=== PATIENT | female | born 1985 ===

== ENCOUNTER 2025-03-04 22:07 | Inpatient (IN) | payer OTHER ==
[~2025-03-04] VITALS: Ht 162.6 cm; Wt 127.5 kg
[2025-03-04] MEDS ORDERED: DiphenhydrAMINE HCl 50 MG/ML 1ML Vial IV ONE (22:45)
[2025-03-04] MEDS ORDERED: EpiNEPhrine 1 MG/1 ML 1ML Vial IM ONE (22:45)
[2025-03-04] MEDS ORDERED: NS 1,000 ML IV SCH (22:45)
[2025-03-04 22:58] LABS: BASOPHILS ABSOLUTE AUTO 0.18 K/mm3 (0.00-0.23); BASOPHILS PERCENT AUTO 1 % (0-2); EOSINOPHILS ABSOLUTE AUTO 0.01 K/mm3 (0.00-0.68); EOSINOPHILS PERCENT AUTO 0 % (0-6); Hematocrit 44.6 % (33.0-51.0); Hemoglobin 15.2 g/dL (11.5-16.0); IMMATURE GRAN ABSOLUTE AUTO 0.52 K/mm3 (0.00-0.10); IMMATURE GRAN PERCENT AUTO 2 % (0-1); LYMPHOCYTES ABSOLUTE AUTO 3.82 K/mm3 (0.84-5.20); LYMPHOCYTES PERCENT AUTO 13 % (21-46); MONOCYTES ABSOLUTE AUTO 1.91 K/mm3 (0.16-1.47); MONOCYTES PERCENT AUTO 6 % (4-13); Mean Corpuscular HGB Conc 34.1 g/dL (31.5-36.5); Mean Corpuscular Volume 83 fL (80-100); NEUTROPHILS ABSOLUTE AUTO 23.73 K/mm3 (1.96-9.15); NEUTROPHILS PERCENT AUTO 79 % (41-73); NRBC ABSOLUTE 0.02 K/mm3 (0.00-0.02); NRBC Auto 0.1 /100 WBC (0.0-0.2); Platelet Count 438 K/mm3 (150-400); RDW Coefficient Variation 13.5 % (11.7-14.2); RDW Standard Deviation 40.5 fL (35.1-46.3)
[2025-03-04 23:10] LABS: Ethanol (Alcohol), Blood, Med 27.0 mg/dL; Thyroid Stimulating Hormone 0.6 uIU/mL (0.360-4.800)
[2025-03-04 23:22] LABS: Alanine Aminotransfer (ALT/SGP 64.0 U/L (12-78); Albumin, Blood 3.4 g/dL (3.4-5.0); Albumin/Globulin Ratio 0.7 (0.8-1.8); Anion Gap 21.0 mmol/L (3-11); Aspartate Aminotrans (AST/SGOT 123.0 U/L (12-37); Bilirubin, Total 0.8 mg/dL (0.1-1.0); Blood Urea Nitrogen 10.0 mg/dL (8-24); CO2, Blood 17.0 mmol/L (21-32); Calcium, Blood 8.9 mg/dL (8.5-10.1); Chloride, Blood 95.0 mmol/L (98-108); Creatinine, Blood 1.34 mg/dL (0.40-1.00); Globulin, Blood 4.7 g/dL (2.2-4.0); Glucose, Blood 197.0 mg/dL (70-99); Magnesium, Blood 0.8 mg/dL (1.6-2.4); Potassium, Blood 3.5 mmol/L (3.5-5.5); Sodium, Blood 129.0 mmol/L (136-145); Total Protein, Blood 8.1 g/dL (6.4-8.2)
[2025-03-04] MEDS ORDERED: Magnesium Sulf 2 GM/Water 50ML 50 ML IV ONE (23:25)
[2025-03-04] MEDS ORDERED: LORazepam 2 MG/ML 1ML Injection IV ONE (23:35)
[2025-03-04] MEDS ORDERED: Morphine Sulfate 4 MG/1 ML Injection IV ONE (23:50)
[2025-03-05 00:02] LABS: pH Blood Venous 7.36 (7.34-7.37)
[2025-03-05] MEDS ORDERED: NS 1,000 ML IV SCH ×4 (00:30→15:45)
[2025-03-05] MEDS ORDERED: LevoFLOXacin 750 MG/D5W 150ML 150 ML IV ONE (00:45)
[2025-03-05 01:18] LABS: U Amphetamine Screen DETECTED; U Barbiturate Screen Not Detected; U Benzodiazapine Screen Not Detected; U Buprenorphine Screen Not Detected; U Cannabinoids Screen DETECTED; U Cocaine Screen Not Detected; U Methadone Screen Not Detected; U Methamphetamine Screen DETECTED; U Opiates Screen DETECTED; U Oxycodone Screen Not Detected; U Phencyclidine Screen Not Detected
[2025-03-05] MEDS ORDERED: FLU VACC TS2025-26(6MOS UP)/PF 45 MCG/0.5 ML SYRINGE IM SCH (02:05)
[2025-03-05] MEDS ORDERED: Morphine Sulfate 4 MG/1 ML Injection IV PRN (02:05)
[2025-03-05] MEDS ORDERED: LORazepam 2 MG/ML 1ML Injection IV PRN (02:05)
[2025-03-05] MEDS ORDERED: Naloxone HCl 0.4MG / ML 1ML Vial IV PRN (02:05)
[2025-03-05 03:31] LABS: Influenza A/2009-H1 Not Detected (NOT DETECT); SARS-Cov-2 (COVID-19), BioFire Not Detected (NOT DETECT)
[2025-03-05 04:15] LABS: pH Blood Venous 7.33 (7.34-7.37)
[2025-03-05] MEDS ORDERED: CYCL10 PO (04:38)
[2025-03-05] MEDS ORDERED: GABA300 PO (04:44)
[2025-03-05] MEDS ORDERED: Inderal 20 mg T20 MG PO (04:47)
[2025-03-05] MEDS ORDERED: RISP1 PO (04:49)
[2025-03-05] MEDS ORDERED: DESVENLAFAXINE100 MG PO (04:50)
[2025-03-05] MEDS ORDERED: TRAZ100 PO (04:50)
[2025-03-05] MEDS ORDERED: BUSPIRONE HCL30 M1 PO (04:52)
[2025-03-05] MEDS ORDERED: ABILIFY MYCITE15 M2 PO (04:52)
[2025-03-05] MEDS ORDERED: PANT20 PO (04:52)
[2025-03-05] MEDS ORDERED: Albuterol 2.5 MG/3 ML VIAL INH PRN (05:30)
[2025-03-05] MEDS ORDERED: Magnesium Sulf 2 GM/Water 50ML 50 ML IV ONE (05:55)
--- NOTE | 2025-03-05 05:56 | NUR ---
SHIFT SUMMARY PT ARRIVED TO PCU AROUND 0420. PT SLID FROM [facility] TO PCU BED. PT SOILED. LINENS CHANGED. PUREWICK REPLACED. PT A&O X4. CIWAS PER PROTOCOL. P REPORTS LAST DRINK WAS BEFORE COMING INTO THE HOSPITAL. HR IN THE 120'S, ST. SHE REPORTS SOME CP 07/19, MD NOTIFIED, MEDICATED PER EMAR. PAIN PRESENT FOR A FEW DAYS. SHE DENIES NUMB/TINGLING. SBP IN THE 140'S. PT ON RA, SpO2 >92%. SHE DENIES ANY SOB AT REST. SOB WITH EXERTION. PT HAS FLUIDS INFUSING PER EMAR. PT RESTING IN BED AT THIS TIME, CALL CHRISTIANO CAMARENA.
[2025-03-05] MEDS ORDERED: CefTRIAXone Sodium 1,000 MG in NS 100 ML IV SCH (06:00)
[2025-03-05 08:23] VITALS: BP 158/106
[2025-03-05] MEDS ORDERED: Lactobacil 2-S.Thermo-Bifido 1 1 Cap PO SCH (09:00)
[2025-03-05] MEDS ORDERED: Enoxaparin 40 MG/0.4 ML SYR SC SCH (09:00)
[2025-03-05 11:49] VITALS: BP 128/84
[2025-03-05] MEDS ORDERED: Vancomycin (Pharmacy Consult) IV SCH (13:00)
[2025-03-05] MEDS ORDERED: Clindamycin 900mg in D5W 50ML 50 ML IV SCH (13:30)
[2025-03-05] MEDS ORDERED: Vancomycin HCL 2,500 MG in NS 500 ML IV SCH (14:00)
--- NOTE | 2025-03-05 14:22 | NUR ---
down for CT scan
[2025-03-05 14:23] LABS: Hematocrit 36.8 % (33.0-51.0); Hemoglobin 12.6 g/dL (11.5-16.0); Mean Corpuscular HGB Conc 34.2 g/dL (31.5-36.5); Mean Corpuscular Volume 84 fL (80-100); NRBC ABSOLUTE 0.02 K/mm3 (0.00-0.02); NRBC Auto 0.1 /100 WBC (0.0-0.2); Platelet Count 308 K/mm3 (150-400); RDW Coefficient Variation 13.6 % (11.7-14.2); RDW Standard Deviation 41.2 fL (35.1-46.3)
--- NOTE | 2025-03-05 14:32 | NUR ---
back from CT
[2025-03-05 14:38] LABS: BAND PERCENT MAN 3 % (0-8); BASOPHILS PERCENT MAN 0 % (0-2); EOSINOPHILS ABSOLUTE AUTO 6.32 K/mm3 (0.00-0.68); EOSINOPHILS PERCENT AUTO 29 % (0-6); EOSINOPHILS PERCENT MAN 0 % (0-6); IMMATURE GRAN ABSOLUTE AUTO 0.19 K/mm3 (0.00-0.10); IMMATURE GRAN PERCENT AUTO 1 % (0-1); LYMPHOCYTES PERCENT MAN 3 % (21-46); MONOCYTES PERCENT MAN 3 % (4-13); NEUTROPHILS ABSOLUTE AUTO 13.12 K/mm3 (1.96-9.15); NEUTROPHILS PERCENT AUTO 60 % (41-73); SEG NEUTROPHILS PERCENT MAN 91 % (41-73)
[2025-03-05 14:49] LABS: C-REACTIVE PROTEIN, EXT RANGE 5.21 mg/dL (0.000-0.300); Magnesium, Blood 1.9 mg/dL (1.6-2.4)
[2025-03-05 14:51] LABS: Alanine Aminotransfer (ALT/SGP 50.0 U/L (12-78); Albumin, Blood 2.8 g/dL (3.4-5.0); Albumin/Globulin Ratio 0.8 (0.8-1.8); Anion Gap 11.0 mmol/L (3-11); Aspartate Aminotrans (AST/SGOT 65.0 U/L (12-37); Bilirubin, Total 0.4 mg/dL (0.1-1.0); Blood Urea Nitrogen 8.0 mg/dL (8-24); CO2, Blood 22.0 mmol/L (21-32); Calcium, Blood 7.7 mg/dL (8.5-10.1); Chloride, Blood 103.0 mmol/L (98-108); Creatinine, Blood 0.81 mg/dL (0.40-1.00); Globulin, Blood 3.7 g/dL (2.2-4.0); Glucose, Blood 250.0 mg/dL (70-99); Phosphorus, Blood 2.1 mg/dL (2.5-4.9); Potassium, Blood 3.4 mmol/L (3.5-5.5); Sodium, Blood 133.0 mmol/L (136-145); Total Protein, Blood 6.5 g/dL (6.4-8.2)
--- NOTE | 2025-03-05 17:37 | NUR ---
SHIFT NOTE: PT A/OX4 ABLE TO MAKE HER NEEDS KNOWN. SHE AMBULATES TO THE CHAIR/BSC WITH 1P ASSIST. SHE HAS REMAINED ON RA WITH SPO2>90%. SHE SNORES AT BASELINE. SHE HAS BEEN IN SR/ST T/O SHIFT WITH NO ACUTE TELE EVENTS. THE REDNESS AND SWELLING ON HER NECK INCREASED T/O DAY WITH PAIN AND ITCHING ASSOCIATED WITH IT. MD NOTIFIED AND VISUALIZED IT AT BEDSIDE. PT BECAME INCREASINGLY RESTLESS IN THE AFTERNOON. CIWA SCORE OF 11, PT MEDICATED PER EMAR. BED ALARM ON FOR SAFETY. CALL LIGHT IN REACH. FLUIDS INFUSING PER EMAR.
[2025-03-05 20:08] VITALS: BP 145/88
[2025-03-05 23:26] VITALS: BP 133/81
[2025-03-05 23:58] VITALS: BP 152/85
[2025-03-06 03:41] LABS: BASOPHILS ABSOLUTE AUTO 0.06 K/mm3 (0.00-0.23); BASOPHILS PERCENT AUTO 0 % (0-2); EOSINOPHILS ABSOLUTE AUTO 0.01 K/mm3 (0.00-0.68); EOSINOPHILS PERCENT AUTO 0 % (0-6); Hematocrit 36.1 % (33.0-51.0); Hemoglobin 11.8 g/dL (11.5-16.0); IMMATURE GRAN ABSOLUTE AUTO 0.17 K/mm3 (0.00-0.10); IMMATURE GRAN PERCENT AUTO 1 % (0-1); LYMPHOCYTES ABSOLUTE AUTO 2.24 K/mm3 (0.84-5.20); LYMPHOCYTES PERCENT AUTO 14 % (21-46); MONOCYTES ABSOLUTE AUTO 0.91 K/mm3 (0.16-1.47); MONOCYTES PERCENT AUTO 6 % (4-13); Mean Corpuscular HGB Conc 32.7 g/dL (31.5-36.5); Mean Corpuscular Volume 86 fL (80-100); NEUTROPHILS ABSOLUTE AUTO 12.51 K/mm3 (1.96-9.15); NEUTROPHILS PERCENT AUTO 79 % (41-73); NRBC ABSOLUTE 0.02 K/mm3 (0.00-0.02); NRBC Auto 0.1 /100 WBC (0.0-0.2); Platelet Count 263 K/mm3 (150-400); RDW Coefficient Variation 13.9 % (11.7-14.2); RDW Standard Deviation 42.5 fL (35.1-46.3)
[2025-03-06 04:02] LABS: Alanine Aminotransfer (ALT/SGP 49.0 U/L (12-78); Albumin, Blood 2.5 g/dL (3.4-5.0); Albumin/Globulin Ratio 0.7 (0.8-1.8); Anion Gap 12.0 mmol/L (3-11); Aspartate Aminotrans (AST/SGOT 63.0 U/L (12-37); Bilirubin, Total 0.3 mg/dL (0.1-1.0); Blood Urea Nitrogen 8.0 mg/dL (8-24); CO2, Blood 22.0 mmol/L (21-32); Calcium, Blood 7.3 mg/dL (8.5-10.1); Chloride, Blood 104.0 mmol/L (98-108); Creatinine, Blood 0.83 mg/dL (0.40-1.00); Globulin, Blood 3.8 g/dL (2.2-4.0); Glucose, Blood 163.0 mg/dL (70-99); Magnesium, Blood 1.8 mg/dL (1.6-2.4); Phosphorus, Blood 2.1 mg/dL (2.5-4.9); Potassium, Blood 3.1 mmol/L (3.5-5.5); Sodium, Blood 135.0 mmol/L (136-145); Total Protein, Blood 6.3 g/dL (6.4-8.2)
[2025-03-06 04:36] VITALS: BP 142/82
[2025-03-06] MEDS ORDERED: Potassium Phosphate Dibasic 30 MM in Dextrose 5% 500 ML IV ONE (05:25)
--- NOTE | 2025-03-06 07:40 | NUR ---
SHIFT SUMMARY PT A/OX4, ALBEIT VERY TIRED. ALWAYS ROUSABLE TO VERBAL STIMULI. SHE DENIES PAIN, VERBALIZES NEEDS, COOPERATIVE WITH CARE. CIWA SCORES 4-5, MOSTLY DUE TO DIAPHORESIS. AT TIMES, PT UNABLE TO STAY AWAKE LONG ENOUGH TO TAKE MEDICATION OR EAT, SAFELY. ON CONTINUOUS PULSE OX, SATS ABOVE 90%, WITH FREQUENT, BUT BRIEF DROPS INTO LOW 80'S WHILE SLEEPING. PT SET UP WITH CPAP, BUT FREQUENT TOSSING AND TURNING IN BED MADE IT DIFFICULT FOR HER TO KEEP HER CPAP ON. SHE DID TOLERATE IT WELL WHILE IT WAS ON, HOWEVER. ON CONTINUOUS CARDIAC TELEMETRY, HR 90'S, BP STABLE. GENERALIZED EDEMA T/O. RASH T/O TORSO, PT REPORTS VERY ITCHY, RASH IS RELATIVELY DRY, VERY LITTLE OOZING. POTASSIUM AND PHOSPHOROUS LOW THIS AM, NOTIFIED, SEE ORDERS FOR REPLACEMENT AND REDRAW. NO ACUTE EVENTS OVERNIGHT.
[2025-03-06 08:27] VITALS: BP 147/95
[2025-03-06] MEDS ORDERED: Folic Acid 1 MG TAB PO SCH (09:00)
[2025-03-06] MEDS ORDERED: CALCIUM GLUC IN NACL, ISO-OSM 50 ML IV ONE (09:30)
[2025-03-06] MEDS ORDERED: Miconazole Nitrate 2% 85 GM PWD TOP SCH (09:40)
[2025-03-06] MEDS ORDERED: Bacitracin Zinc Oint 1GRAM UD Packet TOP PRN (09:45)
[2025-03-06] MEDS ORDERED: DiphenhydrAMINE HCl 50 MG/ML 1ML Vial IV PRN (10:20)
[2025-03-06] MEDS ORDERED: Mag Hydrox/Al Hydrox/Simeth 18 ML,Lidocaine 2% Viscous Soln 9 ML,Atropine/Scopalam/Hyos... PO ONE (10:30)
[2025-03-06] MEDS ORDERED: Ondansetron HCl 2 MG / ML 2ML Vial ONE (10:43)
[2025-03-06] MEDS ORDERED: Ondansetron HCl 2 MG / ML 2ML Vial IV PRN (10:50)
--- NOTE | 2025-03-06 11:18 | NUR ---
MORNING EVENT THIS LATE MORNING THE PT STARTED HAVING EXTREME MID STERNAL CHEST PAIN THAT WAS STABBING AND RADIATING TO HER LEFT BREAST. SHE STATED IT WAS CONSTANT. EKG PREFORMED, TROPONIN DRAWN, AND MORPHINE GIVEN PER EMAR. AFTER THE PT HAD RECEIVED THE MORPHINE THE PT REMEBERED THAT SHE HAS AN ALLERGY TO MORPHINE. WHEN ASKED ABOUT THE TYPE OF ALLERGY SHE STATED IT WAS A RASH. THIS WAS DISCCUSED WITH DR. BRYANT AND 25MG IV BENADRYL WAS ORDERED AND THE MEDICATION WAS ADDED TO THE ALLERGY LIST. BP REMAINED STABLE. THE PT WAS PLACED ON 2L FOR COMFORT AND REMINDED TO NOT HOLD HER BREATH AND TAKE SLOW DEEP BREATHS. A GI COCKTAIL PROVIDED TO THE PT AND SHE STATED THAT HER GI DISCOMFORT AND CHEST PAIN WAS RELIEVED. PT IS CURRENLTY SR 90'S, ON 2L NC W/ SP02 >95%, BP STABLE. SEE NOTES FOR UPDATES.
[2025-03-06 12:40] VITALS: BP 147/82
[2025-03-06 15:46] VITALS: BP 128/77
[2025-03-06] MEDS ORDERED: Sucralfate 1000MG / 10ML UD BTL PO SCH (16:30)
--- NOTE | 2025-03-06 17:13 | NUR ---
END OF SHIFT SUMMARY SEE MORNING NOTE THE PT IS A&OX4, CALLS APPROPRITELY, AND MAKES NEEDS KNOWN. CIWA <8. THE PT IS A 1P ASSIST TO BSC OR CHAIR. SHE HAS BEEN SR/ST 80'S-110'S ON TELE. THE PT HAS DENIED ANY FURTHER ANGINA FROM THIS MORNING. THIS RN DID DISCUSSED WITH DR. BRYANT THAT THE GI COCKTAIL WAS WHAT RELIEVED THE PT'S PAIN FROM THIS MORNING AND HE ORDERED CARAFATE 1 GM ACHS AND PRN DAILY GI COCKTAIL. THE PT WAS PLACED ON A FULL LIQUID DIET D/T ESOPHOGITIS. SHE HAS BEEN ON RA SINCE ABOUT 1300 W/ SP02 >93% AND SHE DENIES ANY SOB. THE PT'S FIANCE DID VISIT HER TODAY AND DISCUSSIONS ABOUT QUITTING DRINKING WAS DISCUSSED AMONGST THE TWO. THE PT WAS RECEPTIVE TO EDUCATION ABOUT LIFESTYLE CHANGES. CURRENTLY SHE IS UP IN THE RECLINER, ON RA. CALL LIGHT IN REACH AND CHAIR ALARM INTACT. SEE NOTES FOR UPDATES.
[2025-03-06 20:26] VITALS: BP 141/107
[2025-03-06 23:36] VITALS: BP 135/79
[2025-03-07 03:37] VITALS: BP 101/60
[2025-03-07 04:34] LABS: BASOPHILS ABSOLUTE AUTO 0.04 K/mm3 (0.00-0.23); BASOPHILS PERCENT AUTO 1 % (0-2); EOSINOPHILS ABSOLUTE AUTO 0.08 K/mm3 (0.00-0.68); EOSINOPHILS PERCENT AUTO 1 % (0-6); Hematocrit 35.1 % (33.0-51.0); Hemoglobin 11.4 g/dL (11.5-16.0); IMMATURE GRAN ABSOLUTE AUTO 0.04 K/mm3 (0.00-0.10); IMMATURE GRAN PERCENT AUTO 1 % (0-1); LYMPHOCYTES ABSOLUTE AUTO 1.56 K/mm3 (0.84-5.20); LYMPHOCYTES PERCENT AUTO 23 % (21-46); MONOCYTES ABSOLUTE AUTO 0.41 K/mm3 (0.16-1.47); MONOCYTES PERCENT AUTO 6 % (4-13); Mean Corpuscular HGB Conc 32.5 g/dL (31.5-36.5); Mean Corpuscular Volume 85 fL (80-100); NEUTROPHILS ABSOLUTE AUTO 4.69 K/mm3 (1.96-9.15); NEUTROPHILS PERCENT AUTO 69 % (41-73); NRBC ABSOLUTE 0.00 K/mm3 (0.00-0.02); NRBC Auto 0.0 /100 WBC (0.0-0.2); Platelet Count 207 K/mm3 (150-400); RDW Coefficient Variation 14.0 % (11.7-14.2); RDW Standard Deviation 42.6 fL (35.1-46.3)
[2025-03-07 05:03] LABS: Alanine Aminotransfer (ALT/SGP 48.0 U/L (12-78); Albumin, Blood 2.5 g/dL (3.4-5.0); Albumin/Globulin Ratio 0.7 (0.8-1.8); Anion Gap 8.0 mmol/L (3-11); Aspartate Aminotrans (AST/SGOT 68.0 U/L (12-37); Bilirubin, Total 0.4 mg/dL (0.1-1.0); Blood Urea Nitrogen 6.0 mg/dL (8-24); CO2, Blood 29.0 mmol/L (21-32); Calcium, Blood 7.6 mg/dL (8.5-10.1); Chloride, Blood 104.0 mmol/L (98-108); Creatinine, Blood 0.89 mg/dL (0.40-1.00); Globulin, Blood 3.4 g/dL (2.2-4.0); Glucose, Blood 101.0 mg/dL (70-99); Magnesium, Blood 1.8 mg/dL (1.6-2.4); Phosphorus, Blood 3.2 mg/dL (2.5-4.9); Potassium, Blood 3.1 mmol/L (3.5-5.5); Sodium, Blood 138.0 mmol/L (136-145); Total Protein, Blood 5.9 g/dL (6.4-8.2)
--- NOTE | 2025-03-07 06:47 | NUR ---
SHIFT SUMMARY PT C/O CHEST PAIN SIMILAR TO WHAT WAS EXPERIENCED DURING DAY SHIFT. ALSO COMPLAINED OF ITCHING AND NAUSEA, TREATED PER EMAR. SLEEP STUDY CONDUCTED OVERNIGHT. REPORT IN CHART. NO ACUTE EVENTS. SINUS RHYTHM, VSS.
[2025-03-07 08:30] VITALS: BP 141/78
[2025-03-07] MEDS ORDERED: Mag Hydrox/Al Hydrox/Simeth 18 ML,Lidocaine 2% Viscous Soln 9 ML,Atropine/Scopalam/Hyos... PO SCH (09:00)
[2025-03-07 11:27] VITALS: BP 145/91
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
[2025-03-07 14:07] LABS: Bacterial Vaginosis PCR Negative (NEGATIVE); Candida Group, PCR DETECTED (NOT DETECT); Candida glabrata-krusei, PCR NOT DETECTED (NOT DETECT)
[2025-03-07 14:38] LABS: Chlamydia Trachomatis Vaginal NOT DETECTED (NOT DETECT); Neisseria Gonorrhoea Vaginal NOT DETECTED (NOT DETECT)
[2025-03-07 15:12] VITALS: BP 125/81
--- NOTE | 2025-03-07 17:03 | NUR ---
END OF SHIFT SUMMARY SEE PREVIOUS NOTE. THE PT REMAINS A&OX4, CALLS APPROPRAITELY, CIWA BACK DOWN TO <8, AND SHE IS A SBA TO THE BATHROOM, AND WAS ABLE TO SHOWER IND. THE PT IS STATING FEELING ALOT OF IMPROVMENT THIS AFTERNOON ESPECIALLY AFTER HER SHOWER. SHE SAID HER NAUSEA AND HEADACHE ARE GONE. HER UPPER ABD HAS BECOME "THE BEST IT HAS FELT" BUT STILL HAS SOME DISCOMFORT. ABD CT HAS SINCE BEEN CANCLED. THE PT WAS C/O ITCHING FROM RASH AND WAS REQUESTING SOME BENADRYL. SHE REMAINS ON RA AND SP02 >93%. THE PT'S FIANCE AND DAUGHTER VISITED HER THIS AFTERNOON. THE PT IS CURRENTLY UP IN THE [employer] EATING DINNER. SEE NOTES FOR ANY UPDATES.
[2025-03-07 19:41] VITALS: BP 142/85
[2025-03-07 20:23] LABS: Vancomycin, Trough 17.2 ug/mL (5.0-10.0)
[2025-03-08 00:16] VITALS: BP 146/87
[2025-03-08 03:09] VITALS: BP 146/88
[2025-03-08 04:14] LABS: BASOPHILS ABSOLUTE AUTO 0.04 K/mm3 (0.00-0.23); BASOPHILS PERCENT AUTO 1 % (0-2); EOSINOPHILS ABSOLUTE AUTO 0.12 K/mm3 (0.00-0.68); EOSINOPHILS PERCENT AUTO 2 % (0-6); Hematocrit 34.3 % (33.0-51.0); Hemoglobin 11.3 g/dL (11.5-16.0); IMMATURE GRAN ABSOLUTE AUTO 0.04 K/mm3 (0.00-0.10); IMMATURE GRAN PERCENT AUTO 1 % (0-1); LYMPHOCYTES ABSOLUTE AUTO 1.30 K/mm3 (0.84-5.20); LYMPHOCYTES PERCENT AUTO 23 % (21-46); MONOCYTES ABSOLUTE AUTO 0.42 K/mm3 (0.16-1.47); MONOCYTES PERCENT AUTO 7 % (4-13); Mean Corpuscular HGB Conc 32.9 g/dL (31.5-36.5); Mean Corpuscular Volume 86 fL (80-100); NEUTROPHILS ABSOLUTE AUTO 3.79 K/mm3 (1.96-9.15); NEUTROPHILS PERCENT AUTO 66 % (41-73); NRBC ABSOLUTE 0.00 K/mm3 (0.00-0.02); NRBC Auto 0.0 /100 WBC (0.0-0.2); Platelet Count 222 K/mm3 (150-400); RDW Coefficient Variation 14.2 % (11.7-14.2); RDW Standard Deviation 43.5 fL (35.1-46.3)
[2025-03-08 04:40] LABS: Alanine Aminotransfer (ALT/SGP 40.0 U/L (12-78); Albumin, Blood 2.5 g/dL (3.4-5.0); Albumin/Globulin Ratio 0.7 (0.8-1.8); Anion Gap 6.0 mmol/L (3-11); Aspartate Aminotrans (AST/SGOT 39.0 U/L (12-37); Bilirubin, Total 0.4 mg/dL (0.1-1.0); Blood Urea Nitrogen 4.0 mg/dL (8-24); CO2, Blood 30.0 mmol/L (21-32); Calcium, Blood 8.0 mg/dL (8.5-10.1); Chloride, Blood 105.0 mmol/L (98-108); Creatinine, Blood 0.86 mg/dL (0.40-1.00); Globulin, Blood 3.5 g/dL (2.2-4.0); Glucose, Blood 116.0 mg/dL (70-99); Magnesium, Blood 1.7 mg/dL (1.6-2.4); Phosphorus, Blood 2.7 mg/dL (2.5-4.9); Potassium, Blood 3.2 mmol/L (3.5-5.5); Sodium, Blood 138.0 mmol/L (136-145); Total Protein, Blood 6.0 g/dL (6.4-8.2)
[2025-03-08 07:35] VITALS: BP 144/93
[2025-03-08] MEDS ORDERED: Budesonide 0.5 MG/2 ML RESP INH SCH (08:30)
[2025-03-08 11:30] VITALS: BP 147/87
--- NOTE | 2025-03-08 13:23 | NUR ---
MORNING SUMMARY THE PT IS A&OX4, CALLS APPROPRAITELY, AND MAKES HER NEEDS KNOWN. SHE IS NOW IND IN THE ROOM FOR TRANSFER AND CALLS APPROPRAITELY FOR HER NEEDS. ON TELE SHE HAS BEEN SR/ST 80'S-100'S AND HAS SINCE BEEN CHANGED TO MEDICAL STATUS WITHOUT TELE. BP REMAINS STABLE. SHE HAS BEEN ON RA WHILE AWAKE AND NAPPING TODAY AND SP02>93% AND SHE DENIES ANY SOB. SHE WAS WHEEZY THIS MORNING AND REQUEST HER BREATHING TREATEMENT WHICH HAS HELPED. IV ABX TRANSISTIONED TO ORAL BY DR. BRYANT. THE PT WAS INCREASED IN DIET TO SOFT BITE SIZED AND DID VOMIT 400CC AFTER LUNCH. MEDICATED PER EMAR. SHE STILL HAS LOOSE STOOLS AND STOOL SOFTENERS HAVE BEEN HELD TODAY. SEE NOTES FOR UPDATES.
[2025-03-08 15:48] VITALS: BP 143/116
--- NOTE | 2025-03-08 18:39 | NUR ---
END OF SHIFT UPDATES. SEE PREVIOUS NOTES. D/T VOMITING LUNCH, THE PT WAS PLACED BACK ON A FULL LIQUID DIET. VOMITING HAS SUBSIDED. GI PANEL SAMPLE SENT TO LAB AND IS PENDING. TELE DISCONTINUED D/T MEDICAL STATUS WITHOUT TELE. SHE HAS REMAINS ON RA AND SP02 >93%. NO ACUTE EVENTS THIS AFTERNOON. SEE NOTES FOR ANY UPDATES.
[2025-03-08 20:08] VITALS: BP 150/97
[2025-03-09 00:16] VITALS: BP 132/83
[2025-03-09 00:30] LABS: Campylobacter Sp Not Detected (NOT DETECT); E. Coli O157 Not Detected (NOT DETECT); Enteroaggregative E. coli-EAEC Not Detected (NOT DETECT); Enteropathogenic E. coli-EPEC Not Detected (NOT DETECT); Enterotoxigenic E. coli-ETEC Not Detected (NOT DETECT); Salmonella Sp Not Detected (NOT DETECT); Shiga Toxin-prod E. coli-STEC Not Detected (NOT DETECT); Shigella/Enteroin E. coli-EIEC Not Detected (NOT DETECT); Vibrio Sp Not Detected (NOT DETECT)
--- NOTE | 2025-03-09 03:38 | NUR ---
SHIFT SUMMARY ALERT ORIENTED X 4 ABLE TO VERBALIZE NEEDS .PLEASANT AND COOPERATIVE WITH CARE. CALLS APPROPRIATELY. GETS UP TO THE TOILET AND AMBULATES IN HER ROOM AD HOLLY. REMAINS ON RA AND CPAP WHILE SLEEPING SATTING AT 95-100%. SHE'S A MEDICAL PATIENT AND IS NOT ON TELEMETRY. CONTINUES ON A CONTINUOUS PULSE OX. SHE'S TOLERATING A FULL LIQUID DIET. ABLE TO TAKE MEDS WHOLE WITH WATER. NO C/O N/V THIS SHIFT. C/O GENERALIZED PAIN MEDICATED WITH TYLENOL WITH GOOD RELIEF. C/O ITCHING TO RASH AREA. MEDICATED WITH BENEDRYL. REMAINS WITH RASH TO LEFT ARM, CHEST AND NECK. CREAM WAS APPLIED TO AREA. GI PANEL WAS NEGATIVE SO PT WAS TAKEN OFF ISOLATION. REMAINS ON CLINDAMYCIN AND DOXYCYCLINE FOR CELLULITIS. NO C/O LOOSE STOOLS THIS SHIFT. BED IN LOWEST POSITION. CALL LIGHT IN REACH. CALLS APPROPRIATELY.
[2025-03-09 04:18] VITALS: BP 143/93
[2025-03-09 04:47] LABS: BASOPHILS ABSOLUTE AUTO 0.03 K/mm3 (0.00-0.23); BASOPHILS PERCENT AUTO 0 % (0-2); EOSINOPHILS ABSOLUTE AUTO 0.17 K/mm3 (0.00-0.68); EOSINOPHILS PERCENT AUTO 3 % (0-6); Hematocrit 34.8 % (33.0-51.0); Hemoglobin 11.5 g/dL (11.5-16.0); IMMATURE GRAN ABSOLUTE AUTO 0.07 K/mm3 (0.00-0.10); IMMATURE GRAN PERCENT AUTO 1 % (0-1); LYMPHOCYTES ABSOLUTE AUTO 1.54 K/mm3 (0.84-5.20); LYMPHOCYTES PERCENT AUTO 23 % (21-46); MONOCYTES ABSOLUTE AUTO 0.53 K/mm3 (0.16-1.47); MONOCYTES PERCENT AUTO 8 % (4-13); Mean Corpuscular HGB Conc 33.0 g/dL (31.5-36.5); Mean Corpuscular Volume 86 fL (80-100); NEUTROPHILS ABSOLUTE AUTO 4.48 K/mm3 (1.96-9.15); NEUTROPHILS PERCENT AUTO 66 % (41-73); NRBC ABSOLUTE 0.00 K/mm3 (0.00-0.02); NRBC Auto 0.0 /100 WBC (0.0-0.2); Platelet Count 243 K/mm3 (150-400); RDW Coefficient Variation 14.2 % (11.7-14.2); RDW Standard Deviation 43.2 fL (35.1-46.3)
[2025-03-09 05:05] LABS: Albumin, Blood 2.6 g/dL (3.4-5.0); Anion Gap 8 mmol/L (3-11); Blood Urea Nitrogen 6 mg/dL (8-24); CO2, Blood 27 mmol/L (21-32); Calcium, Blood 8.3 mg/dL (8.5-10.1); Chloride, Blood 105 mmol/L (98-108); Creatinine, Blood 0.80 mg/dL (0.40-1.00); Glucose, Blood 101 mg/dL (70-99); Phosphorus, Blood 3.6 mg/dL (2.5-4.9); Potassium, Blood 3.7 mmol/L (3.5-5.5); Sodium, Blood 136 mmol/L (136-145)
[2025-03-09 07:31] VITALS: BP 139/91
[2025-03-09 10:11] LABS: HIV 1,2 COMBO ANTIGEN/ANTIBODY Negative (Negative)
[2025-03-09] MEDS ORDERED: BACITRACIN ZIN1 EAC1 TOP (12:02)
[2025-03-09] MEDS ORDERED: DOXY100 PO (12:05)
[2025-03-09] MEDS ORDERED: [UNRECOGNIZED DRUG - OTHER] PO (12:05)
[2025-03-09] MEDS ORDERED: CLINDAMYCIN PO (12:05)
[2025-03-09] MEDS ORDERED: POTCHL20ER PO (12:06)
[2025-03-09] MEDS ORDERED: PROBIOTIC1 EA13 PO (12:06)
[2025-03-09] MEDS ORDERED: Nicoderm Cq1 EAC1 TOP (12:06)
[2025-03-09 12:51] LABS: APTIMA MEDIA TYPE Urine; C. TRACHOMATIS BY TMA Negative (Negative)
[2025-03-09 12:54] VITALS: BP 147/91
--- NOTE | 2025-03-09 13:32 | NUR ---
SHIFT SUMMARY/DISCHARGE PATIENT IS ALERT AND ORIENTED, ABLE TO FOLLOW COMMANDS AND MAKE NEEDS KNOWN. ANSWERS ALL QUESTIONS APPROPRIATELY. PATIENT HYPERTENSIVE THIS SHIFT, STATES THIS IS BASELINE, PATIENT DENIES CHEST PAIN OR PRESSURE. SPO2 >90% ON RA, PRN BREATHING TREATMENTS WITH RT. ABDOMEN IS MILDLY DISTENDED AND NONTENDER UPON PALPATION, LOOSE STOOL OVERNIGHT, DENIES LOOSE STOOL THIS AM. RASH PRESENT ON LEFT ARM/CHEST/NECK THAT PATIENT REPORTS IS ITCHY. PATIENT IS UP AD HOLLY IN ROOM. DISCHARGE PATIENT PROVIDED DISCHARGE EDUCATION. ALL QUESTIONS ANSWERED, PATIENT VERBALIZED UNDERSTANDING OF DISCARGE INFORMATION. VSS, PATIENT SHOWING NO SIGNS OF DISTRESS. PATIENT LEFT UNIT VIA WHEELCHAIR AT 1255, ALL PERSONAL BELONGINGS WITH PATIENT.
== END 2025-03-09 13:03 | disposition home or self-care (01) | DRG 871 ==
LOC: ER 22:07 → PCU 03-05 02:01
PROVIDERS: Emergency Medicine; Family Medicine; ADMIT Student in an Organized Health Care Education/Training Program
DX: A41.9 Sepsis, unspecified organism (principal); I21.A1 Myocardial infarction type 2; J96.01 Acute respiratory failure with hypoxia; K20.91 Esophagitis, unspecified with bleeding; R65.21 Severe sepsis with septic shock; E87.20 Acidosis, unspecified; F10.239 Alcohol dependence with withdrawal, unspecified; L03.221 Cellulitis of neck; N17.9 Acute kidney failure, unspecified; E66.2 Morbid (severe) obesity with alveolar hypoventilation; L03.114 Cellulitis of left upper limb; Z68.43 Body mass index [BMI] 50.0-59.9, adult; K76.0 Fatty (change of) liver, not elsewhere classified; R21 Rash and other nonspecific skin eruption; E83.42 Hypomagnesemia; F15.90 Other stimulant use, unspecified, uncomplicated; F11.90 Opioid use, unspecified, uncomplicated; F12.90 Cannabis use, unspecified, uncomplicated; Z23 Encounter for immunization; Z88.0 Allergy status to penicillin; Z79.899 Other long term (current) drug therapy; Z98.890 Other specified postprocedural states
CPT/HCPCS: 0202U; 36415; 70491; 71045; 71260; 80053; 80069; 80202; 80320; 81515; 82330; 82803; 83605; 83735; 83880; 84100; 84145; 84439; 84443; 84484; 85025; 85379; 85651; 86140; 86592; 87040; 87389; 87491; 87507; 87591; 93005; 93010; 93306; 94640; 94660; 94664; 94762; 96361; 96365; 96366; 96367; 96372; 96375; 99285-25; A6590; A9270; J0166; J0169; J0456; J0612; J0696; J1200; J1650; J1938; J1956; J2060; J2270; J2405; J2470; J2919; J3373; J3411; J3475; J3480; J7030; J7040; J7050; J7060; Q9967